=== PATIENT | male | born 1965 | race Caucasian/White ===

== ENCOUNTER 2025-06-01 07:53 | Inpatient (IN) ==
[2025-05-21 10:16] LABS: Basophils # (Auto) 0.06 K/mcL (0.00-0.30); Basophils % (Auto) 0.9 % (0.0-2.0); Eosinophils # (Auto) 0.61 K/mcL (0.00-0.70); Eosinophils % (Auto) 9.1 % (0.0-7.0); Hematocrit 42.6 % (40.1-51.0); Hemoglobin 13.8 g/dL (13.7-17.5); Lymphocytes # (Auto) 1.12 K/mcL (1.50-4.80); Lymphocytes % (Auto) 16.7 % (15.5-49.0); Mean Corpuscular HGB Conc 32.4 g/dL (31.0-36.0); Monocytes # (Auto) 0.66 K/mcL (0.10-0.90); Monocytes % (Auto) 9.8 % (1.0-12.0); Neutrophils % (Auto) 63.4 % (38.0-78.0); Platelet Count 232 K/mcL (140-440); RBC 4.76 M/mcL (4.63-6.08); WBC 6.7 K/mcL (4.5-11.0)
[2025-05-21 10:35] LABS: ALT/SGPT 40 U/L (<40); AST/SGOT 24 U/L (<40); Albumin 4.3 gm/dL (3.2-5.2); Albumin/Globulin Ratio 1.9 (1.0-2.3); Alkaline Phosphatase 78 U/L (39-117); Anion Gap 10.0 (8.0-16.0); Bilirubin,Total 0.6 mg/dL (0.1-1.0); Blood Urea Nitrogen 21 mg/dL (8-23); Calcium 9.3 mg/dL (8.6-10.4); Carbon Dioxide 25 mmol/L (22-30); Chloride 105 mmol/L (96-108); Globulin 2.3 gm/dL (2.2-3.7); Glucose 101 mg/dL (70-105); Potassium 4.2 mmol/L (3.3-5.1); Sodium 140 mmol/L (133-145)
[2025-05-21 10:35] LABS: INR 1.0 (0.9-1.1); Prothrombin Time 13.4 sec (11.9-14.5)
[2025-05-21 10:42] LABS: Bilirubin,Urine Negative (Negative); Color,Urine Yellow; Glucose,Urine (UA) Negative (Negative); Ketones,Urine Trace mg/dL (Negative); Leukocyte Esterase,Urine Negative /uL (Negative); PH,Urine 5.5 (5.0-9.0); Protein,Urine Negative (Negative); Specific Gravity,Urine 1.025 (1.000-1.035); Urobilinogen,Urine Normal
[2025-05-21 18:06] LABS: Estimated Average Glucose(eAG) 114 mg/dL; Hemoglobin A1C 5.6 % Hgb (4.0-6.0)
[2025-06-01] MEDS: PREGABALIN 75 MG CAPSULE PO SCH (08:12)
[2025-06-01] MEDS: oxyCODONE 10 MG TAB.ER.12H PO SCH (08:12)
[2025-06-01] MEDS: CELECOXIB 200 MG CAPSULE PO SCH (08:13)
[2025-06-01] MEDS: ACETAMINOPHEN 500 MG TABLET PO SCH (08:13)
[2025-06-01] MEDS ORDERED: LIDOCAINE 2% PF 5 ML VIAL ONE (09:27)
[2025-06-01] MEDS ORDERED: MAGNESIUM SULFATE 2 GM/50 ML BAG IV ONE (09:27)
[2025-06-01] MEDS ORDERED: ONDANSETRON 4 MG/2 ML VIAL ONE (09:27)
[2025-06-01] MEDS ORDERED: GLYCOPYRROLATE 0.2 MG/ML VIAL IV ONE (09:27)
[2025-06-01] MEDS ORDERED: DEXAMETHASONE 10 MG/ML VIAL ONE (09:27)
[2025-06-01] MEDS ORDERED: TRANEXAMIC ACID 1,000 MG/10 ML VIAL ONE (09:27)
[2025-06-01] MEDS ORDERED: PROPOFOL 200 MG/20 ML VIAL IV ONE (09:31)
[2025-06-01] MEDS: ceFAZolin 2 GM in DEXTROSE 5% IN WATER 50 ML IV SCH (10:09)
[2025-06-01] MEDS ORDERED: PHENYLephrine 1 MG/10 ML SYRINGE (ANEST) ONE (11:12)
[2025-06-01] MEDS ORDERED: VASOPRESSIN 20 UNIT/ML VIAL ONE (11:47)
[2025-06-01] MEDS ORDERED: 0.9 % SODIUM CHLORIDE 100 ML IV ONE (11:47)
[2025-06-01] MEDS ORDERED: SUGAMMADEX SODIUM 200 MG/2 ML VIAL IV ONE (12:01)
[2025-06-01] MEDS ORDERED: IPRATROPIUM/ALBUTEROL 3 ML AMPUL.NEB NEB PRN (12:13)
[2025-06-01] MEDS ORDERED: ONDANSETRON 4 MG/2 ML VIAL IV PRN ×2 (12:13→12:20)
[2025-06-01] MEDS ORDERED: fentaNYL 100 MCG/2 ML VIAL IV PRN (12:13)
[2025-06-01] MEDS ORDERED: BENZOCAINE/MENTHOL 1 LOZENGE PO PRN (12:20)
[2025-06-01] MEDS ORDERED: ACETAMINOPHEN 325 MG TABLET PO PRN (12:20)
[2025-06-01] MEDS: TRANEXAMIC ACID 1,000 MG/10 ML VIAL IV SCH (12:52)
[2025-06-01] MEDS: 0.9 % SODIUM CHLORIDE 1,000 ML IV SCH (14:00)
[2025-06-01] MEDS: 0.9 % SODIUM CHLORIDE 10 ML SYRINGE IV SCH (14:10)
[2025-06-01] MEDS: DOCUSATE SODIUM 100 MG CAPSULE PO SCH (20:05)
[2025-06-01] MEDS: ASPIRIN 81 MG TAB.CHEW CHEWED SCH (20:05)
[2025-06-01] MEDS ORDERED: TEMAZEPAM 15 MG CAPSULE PO PRN (21:00)
[2025-06-02] MEDS: HYDROcodone/APAP 10/325MG TABLET PO PRN (01:53)
[2025-06-02] MEDS: OMEPRAZOLE 20 MG CAPSULE PO SCH (07:34)
[2025-06-02] MEDS: MULTIVIT,THER IRON,CA,FA & MIN 1 TABLET PO SCH (08:27)
[2025-06-02] MEDS: FLUTICASONE FUROATE VILANTEROL INH SCH (08:32)
[2025-06-02 11:39] VITALS: TEMP 98.8
[2025-06-02 12:06] VITALS: O2SAT 94
== END 2025-06-02 11:51 | disposition home or self-care (01) | DRG 483 ==
LOC: MEDSUR 07:53
PROVIDERS: ADMIT Orthopaedic Surgery; ATTEND Orthopaedic Surgery